=== PATIENT | female | born 1985 | race American Indian/Alaskan Native ===

== ENCOUNTER 2020-06-15 21:01 | Inpatient (IN) | payer OTHER ==
[2020-06-15 23:03] LABS: Basophils # (Auto) 0.1 K/mm3 (0.0-0.1); Basophils % (Auto) 0.5 % (0.0-1.8); Eosinophils % (Auto) 0.1 % (0.0-4.3); Hematocrit 51.9 % (30.3-42.9); Hemoglobin 16.9 gm/dl (10.1-14.3); Lymphocytes # (Auto) 2.1 K/mm3 (1.2-5.4); Lymphocytes % (Auto) 13.5 % (13.4-35.0); Mean Corpuscular HGB Conc 33 % (30-34); Mean Corpuscular Volume 102 fl (79-97); Monocytes # (Auto) 0.8 K/mm3 (0.0-0.8); Monocytes % (Auto) 5.2 % (0.0-7.3); Platelet Count 328 K/mm3 (140-440); Red Blood Count 5.09 M/mm3 (3.65-5.03); Red Cell Distribution Width 14.1 % (13.2-15.2)
[2020-06-15] MEDS ORDERED: SODIUM CHLORIDE 0.9% 1000 ML 1,000 ML IV ONE ×2 (23:13→23:14)
[2020-06-15 23:14] LABS: Alanine Aminotransferase 12 units/L (7-56); Blood Urea Nitrogen 5 mg/dL (7-17); Calcium 8.5 mg/dL (8.4-10.2); Hemolysis Index 178
--- NOTE | 2020-06-15 23:18 | Emergency Department Report ---
ED General Adult HPI - General Chief complaint: Hyperglycemia Stated complaint: WEAKNESS/MALAISE Time Seen by Provider: 06/15/20 23:13 Source: patient, EMS Mode of arrival: Ambulatory Limitations: No Limitations - History of Present Illness Initial comments: Patient is 34 years old female with history of type 1 diabetes. Patient presented to the ER complaining of generalized weakness and difficulty breathing for the last 2 to 3 days. Patient found with Kussmaul breathing with decreased responsiveness. Patient denied any fever or chills recently. No chest pain or cough. - Related Data Allergies Allergy/AdvReac Type Severity Reaction Status Date / Time No Known Allergies Allergy Verified 06/15/20 21:51 ED Review of Systems ROS: Stated complaint: WEAKNESS/MALAISE Other details as noted in HPI Comment: All other systems reviewed and negative Constitutional: denies: chills, fever Respiratory: shortness of breath, SOB with exertion. denies: cough, orthopnea Cardiovascular: palpitations. denies: chest pain Gastrointestinal: nausea. denies: abdominal pain, vomiting, diarrhea, constipation, hematemesis, melena, hematochezia Musculoskeletal: denies: back pain Neurological: weakness. denies: headache, numbness, paresthesias, confusion, abnormal gait ED Past Medical Hx - Past Medical History Previous Medical History?: Yes Hx Diabetes: Yes - Surgical History Past Surgical History?: Yes Hx Cholecystectomy: Yes Additional Surgical History: skin graft - Social History Smoking Status: Current Every Day Smoker Substance Use Type: None ED Physical Exam - General Limitations: No Limitations General appearance: obtunded - Head Head exam: Present: atraumatic, normocephalic, normal inspection - Eye Eye exam: Present: normal appearance, PERRL - ENT ENT exam: Present: mucous membranes dry - Neck Neck exam: Present: normal inspection, full ROM. Absent: tenderness, meningismus - Respiratory Respiratory exam: Present: normal lung sounds bilaterally - Cardiovascular Cardiovascular Exam: Present: tachycardia - GI/Abdominal GI/Abdominal exam: Present: soft, normal bowel sounds. Absent: distended, tenderness, guarding, rebound, rigid, organomegaly, mass, bruit, pulsatile mass, hernia - Extremities Exam Extremities exam: Present: normal inspection, full ROM, normal capillary refill. Absent: tenderness - Back Exam Back exam: Present: normal inspection, full ROM. Absent: tenderness, CVA tenderness (R), CVA tenderness (L) - Neurological Exam Neurological exam: Present: alert, oriented X3, CN II-XII intact, normal gait. Absent: motor sensory deficit - Psychiatric Psychiatric exam: Present: normal mood - Skin Skin exam: Present: warm, intact, normal color ED Course Vital Signs 06/15/20 06/15/20 21:46 23:15 Temperature 98.3 F 98 F Pulse Rate 129 H 124 H Respiratory 20 30 H Rate Blood Pressure 135/80 Blood Pressure 127/58 [Right] O2 Sat by Pulse 99 99 Oximetry ED Medical Decision Making - Lab Data Result diagrams: 06/15/20 22:22 06/15/20 22:22 - Radiology Data Radiology results: report reviewed - Medical Decision Making Patient is 34 years old female with history of type 1 diabetes. Patient presented to the ER complaining of generalized weakness and difficulty breathing for the last 2 to 3 days. Patient found with Kussmaul breathing with decreased responsiveness. Patient denied any fever or chills recently. No chest pain or cough. Patient found to be in a DKA with anion gap of 34 and a carbon dioxide of 6. Patient started on normal saline and insulin drip. Chest x-ray is unremarkable. I discussed the patient with Dr. Amos, he agreed to admit the patient to medical service for further management. Critical Care Time: Yes Critical care time in (mins) excluding proc time.: 30 Critical care attestation.: If time is entered above; I have spent that time in minutes in the direct care of this critically ill patient, excluding procedure time. ED Disposition Clinical Impression: DKA (diabetic ketoacidoses) Disposition: DC-[id number] OP ADMIT IP TO THIS HOSP Is pt being admited?: Yes Condition: Stable Instructions: Diabetic Ketoacidosis (ED)
[2020-06-15 23:19] LABS: BUN/Creatinine Ratio 7
--- NOTE | 2020-06-15 23:43 | XRay Report ---
CHEST 1 VIEW INDICATION: Shortness of breath. COMPARISON: None. FINDINGS: Support devices: None. Heart: Normal. Lungs/Pleura: No acute pulmonary or pleural findings. IMPRESSION: 1. No acute findings. Signer Name: Al Romo MD Signed: 06/15/2020 11:39 PM Workstation Name: [id number]
[2020-06-15] MEDS ORDERED: INSULIN REGULAR, HUMAN 100 UNITS in SODIUM CHLORIDE 0.9% 99 ML IV SCH (23:45)
[2020-06-16 00:18] LABS: Blood Urea Nitrogen 5 mg/dL (7-17); Calcium 8.4 mg/dL (8.4-10.2); Hemolysis Index 39
[2020-06-16 00:28] LABS: BUN/Creatinine Ratio 7
[2020-06-16] MEDS ORDERED: DEXTROSE 50% IN WATER (25GM) 50 ML SYRINGE IV PRN (00:33)
[2020-06-16] MEDS ORDERED: MORPHINE 2 MG/1 ML INJ IV PRN (00:33)
--- NOTE | 2020-06-16 00:43 | History and Physical Report ---
History of Present Illness Date of examination: 06/16/20 Date of admission: 06/16/2020 Chief complaint: Generalized Weakness Shortness of Breath Past History Past Medical History: diabetes Past Surgical History: cholecystectomy, Other (Skin Graft) Social history: smoking (Current daily smoker) Family history: no significant family history Medications and Allergies Allergies Allergy/AdvReac Type Severity Reaction Status Date / Time No Known Allergies Allergy Verified 06/15/20 21:51 Active Meds: Active Medications Dextrose (Dextrose 50% In Water (25gm) 50 Ml Syringe) 0 ml IV Q30MIN PRN; Protocol PRN Reason: Hypoglycemia Insulin Human Regular 100 (units/ Sodium Chloride) 100 mls @ 1 mls/hr IV TITR EMMA; Protocol Last Admin: 06/16/20 00:00 Dose: 7 units/hr, 7 mls/hr Documented by: Sodium Chloride (Nacl 0.9% 1000 Ml) 1,000 mls @ 150 mls/hr IV DIRECT EMMA Potassium Chloride/Dextrose/Sod Cl (D5w/0.45% Nacl/Kcl 20 Meq) 20 meq in 1,000 mls @ 125 mls/hr IV DIRECT EMMA Morphine Sulfate (Morphine 2 Mg/1 Ml Inj) 2 mg IV Q4H PRN PRN Reason: Pain, Moderate (4-6) Ondansetron HCl (Ondansetron 4 Mg/2 Ml Inj) 4 mg IV Q8H PRN PRN Reason: Nausea And Vomiting Sodium Chloride (Sodium Chloride 0.9% 10 Ml Flush Syringe) 10 ml IV BID EMMA Sodium Chloride (Sodium Chloride 0.9% 10 Ml Flush Syringe) 10 ml IV PRN PRN PRN Reason: LINE FLUSH Review of Systems Constitutional: weakness, no fever, no chills Ears, nose, mouth and throat: no nasal congestion, no sore throat Cardiovascular: no chest pain, no palpitations Respiratory: no cough, no shortness of breath Gastrointestinal: no abdominal pain, no nausea, no vomiting, no diarrhea Genitourinary Female: no flank pain, no dysuria, no hematuria Musculoskeletal: no neck pain, no low back pain Integumentary: no rash, no pruritis Neurological: no headaches, no confusion Psychiatric: no anxiety, no depression Endocrine: no polyphagia, no polydipsia, no polyuria, no nocturia, no weight change Exam - Constitutional Vitals: Temp Pulse Resp BP Pulse Ox 98 F 124 H 30 H 127/58 99 06/15/20 23:15 06/15/20 23:15 06/15/20 23:15 06/15/20 23:15 06/15/20 23:15 General appearance: Present: no acute distress, well-nourished - EENT Eyes: Present: PERRL, EOM intact. Absent: scleral icterus ENT: hearing intact, clear oral mucosa, dentition normal - Neck Neck: Present: supple, normal ROM - Respiratory Respiratory effort: normal, other (Mildly tachypneic) Respiratory: bilateral: CTA - Cardiovascular Heart rate: 120 Rhythm: other (Tachycardic) Heart Sounds: Present: S1 & S2. Absent: gallop, systolic murmur, diastolic murmur, rub, click - Extremities Extremities: no ischemia, pulses intact, pulses symmetrical, No edema, normal temperature, normal color, Full ROM Peripheral Pulses: within normal limits - Abdominal General gastrointestinal: Present: soft, non-tender, non-distended, normal bowel sounds. Absent: mass - Integumentary Integumentary: Present: clear, warm, dry. Absent: rash - Musculoskeletal Musculoskeletal: strength equal bilaterally - Psychiatric Psychiatric: appropriate mood/affect, intact judgment & insight, memory intact, cooperative - Neurologic Neurologic: CNII-XII intact, no focal deficits, moves all extremities Results - Labs CBC & Chem 7: 06/15/20 22:22 06/15/20 23:41 Labs: Abnormal lab results 06/15/20 06/15/20 06/15/20 Range/Units 21:57 22:22 22:22 WBC 15.3 H (4.5-11.0) K/mm3 RBC 5.09 H (3.65-5.03) M/mm3 Hgb 16.9 H (10.1-14.3) gm/dl Hct 51.9 H (30.3-42.9) % MCV 102 H (79-97) fl MCH 33 H (28-32) pg Seg Neutrophils % 80.7 H (40.0-70.0) % Seg Neutrophils # 12.3 H (1.8-7.7) K/mm3 VBG pH (7.320-7.420) Sodium 134 L (137-145) mmol/L Potassium 5.1 H (3.6-5.0) mmol/L Carbon Dioxide 6 L* (22-30) mmol/L BUN 5 L (7-17) mg/dL Glucose 414 H (65-100) mg/dL POC Glucose 362 H (70-105) mg/dL Magnesium 2.40 H (1.7-2.3) mg/dL Total Protein 8.3 H (6.3-8.2) g/dL 06/15/20 06/15/20 06/15/20 Range/Units 22:22 23:41 23:41 WBC (4.5-11.0) K/mm3 RBC (3.65-5.03) M/mm3 Hgb (10.1-14.3) gm/dl Hct (30.3-42.9) % MCV (79-97) fl MCH (28-32) pg Seg Neutrophils % (40.0-70.0) % Seg Neutrophils # (1.8-7.7) K/mm3 VBG pH 7.011 L* (7.320-7.420) Sodium (137-145) mmol/L Potassium (3.6-5.0) mmol/L Carbon Dioxide 4 L* (22-30) mmol/L BUN 5 L (7-17) mg/dL Glucose 432 H (65-100) mg/dL POC Glucose (70-105) mg/dL Magnesium 2.40 H (1.7-2.3) mg/dL Total Protein (6.3-8.2) g/dL 06/15/20 Range/Units 23:54 WBC (4.5-11.0) K/mm3 RBC (3.65-5.03) M/mm3 Hgb (10.1-14.3) gm/dl Hct (30.3-42.9) % MCV (79-97) fl MCH (28-32) pg Seg Neutrophils % (40.0-70.0) % Seg Neutrophils # (1.8-7.7) K/mm3 VBG pH (7.320-7.420) Sodium (137-145) mmol/L Potassium (3.6-5.0) mmol/L Carbon Dioxide (22-30) mmol/L BUN (7-17) mg/dL Glucose (65-100) mg/dL POC Glucose 398 H (70-105) mg/dL Magnesium (1.7-2.3) mg/dL Total Protein (6.3-8.2) g/dL Assessment and Plan - Patient Problems (1) DKA (diabetic ketoacidoses) Current Visit: Yes Status: Acute (2) DVT prophylaxis Current Visit: Yes Status: Acute (3) Full code status Current Visit: Yes Status: Acute
[2020-06-16] MEDS ORDERED: D5W/0.45% NACL/KCL 20 MEQ 20 MEQ/1,000 ML BAG IV SCH (01:00)
--- NOTE | 2020-06-16 01:38 | History and Physical Report ---
History of Present Illness Date of examination: 06/15/20 Date of admission: 06/16/20 00:10 Chief complaint: Generalized Weakness Nausea and Vomiting History of present illness: 34-year-old -[place] female with known history of type 1 diabetes mellitus presenting in the emergency room today complaining of generalized weakness difficulty breathing which has been ongoing for the past 2 to 3 days. Patient denies any fever or chills, no chest pain, no headache or dizziness and no diaphoresis. Patient indicates that she has been having nausea and vomiting and some abdominal discomfort. She denies any hematuria or dysuria. Upon arrival in the emergency room patient was tachycardic and tachypneic. Work-up reveals elevated blood glucose of 414, anion gap of 34 . Patient was commenced on IV fluid and insulin drip according to DKA protocol. Past History Past Medical History: diabetes Past Surgical History: cholecystectomy, Other (Skin Graft) Social history: smoking (Current daily smoker) Family history: no significant family history Medications and Allergies Allergies Allergy/AdvReac Type Severity Reaction Status Date / Time No Known Allergies Allergy Verified 06/15/20 21:51 Active Meds: Active Medications Dextrose (Dextrose 50% In Water (25gm) 50 Ml Syringe) 0 ml IV Q30MIN PRN; Protocol PRN Reason: Hypoglycemia Enoxaparin Sodium (Enoxaparin 40 Mg/0.4 Ml Inj) 40 mg SUB-Q QDAY@2200 EMMA; Protocol Insulin Human Regular 100 (units/ Sodium Chloride) 100 mls @ 1 mls/hr IV TITR EMMA; Protocol Last Titration: 06/16/20 01:02 Dose: 6 units/hr, 6 mls/hr Documented by: Sodium Chloride (Nacl 0.9% 1000 Ml) 1,000 mls @ 150 mls/hr IV DIRECT EMMA Potassium Chloride/Dextrose/Sod Cl (D5w/0.45% Nacl/Kcl 20 Meq) 20 meq in 1,000 mls @ 125 mls/hr IV DIRECT EMMA Morphine Sulfate (Morphine 2 Mg/1 Ml Inj) 2 mg IV Q4H PRN PRN Reason: Pain, Moderate (4-6) Ondansetron HCl (Ondansetron 4 Mg/2 Ml Inj) 4 mg IV Q8H PRN PRN Reason: Nausea And Vomiting Sodium Chloride (Sodium Chloride 0.9% 10 Ml Flush Syringe) 10 ml IV BID EMMA Sodium Chloride (Sodium Chloride 0.9% 10 Ml Flush Syringe) 10 ml IV PRN PRN PRN Reason: LINE FLUSH Review of Systems Constitutional: weakness Ears, nose, mouth and throat: no nasal congestion, no sore throat Cardiovascular: palpitations, no chest pain Respiratory: no cough, no shortness of breath Gastrointestinal: abdominal pain, nausea, vomiting, no BRBPR, no melena Genitourinary Female: no flank pain, no dysuria, no hematuria Musculoskeletal: no neck pain, no low back pain Integumentary: no rash, no pruritis Neurological: no headaches, no confusion Psychiatric: no anxiety, no depression Endocrine: no polyphagia, no polydipsia, no polyuria, no nocturia Exam - Constitutional Vitals: Temp Pulse Resp BP Pulse Ox 98 F 122 H 32 H 135/74 100 06/15/20 23:15 06/16/20 00:00 06/16/20 00:00 06/16/20 00:00 06/16/20 00:00 General appearance: Present: no acute distress, well-nourished - EENT Eyes: Present: PERRL, EOM intact. Absent: scleral icterus ENT: hearing intact, clear oral mucosa, dentition normal - Neck Neck: Present: supple, normal ROM - Respiratory Respiratory effort: normal Respiratory: bilateral: CTA - Cardiovascular Heart rate: 120 (Tachycardic) Rhythm: regular Heart Sounds: Present: S1 & S2. Absent: gallop, systolic murmur, diastolic m urmur, rub, click - Extremities Extremities: no ischemia, pulses intact, pulses symmetrical, No edema, normal temperature, normal color, Full ROM Peripheral Pulses: within normal limits - Abdominal General gastrointestinal: Present: soft, non-tender, non-distended, normal bowel sounds. Absent: mass - Integumentary Integumentary: Present: clear, warm, dry. Absent: rash - Musculoskeletal Musculoskeletal: strength equal bilaterally - Psychiatric Psychiatric: appropriate mood/affect, intact judgment & insight, memory intact, cooperative - Neurologic Neurologic: CNII-XII intact, no focal deficits, moves all extremities Results - Labs CBC & Chem 7: 06/15/20 22:22 06/16/20 01:09 Labs: Abnormal lab results 06/15/20 06/15/20 06/15/20 Range/Units 21:57 22:22 22:22 WBC 15.3 H (4.5-11.0) K/mm3 RBC 5.09 H (3.65-5.03) M/mm3 Hgb 16.9 H (10.1-14.3) gm/dl Hct 51.9 H (30.3-42.9) % MCV 102 H (79-97) fl MCH 33 H (28-32) pg Seg Neutrophils % 80.7 H (40.0-70.0) % Seg Neutrophils # 12.3 H (1.8-7.7) K/mm3 VBG pH (7.320-7.420) Sodium 134 L (137-145) mmol/L Potassium 5.1 H (3.6-5.0) mmol/L Carbon Dioxide 6 L* (22-30) mmol/L BUN 5 L (7-17) mg/dL Glucose 414 H (65-100) mg/dL POC Glucose 362 H (70-105) mg/dL Magnesium 2.40 H (1.7-2.3) mg/dL Total Protein 8.3 H (6.3-8.2) g/dL 06/15/20 06/15/20 06/15/20 Range/Units 22:22 23:41 23:41 WBC (4.5-11.0) K/mm3 RBC (3.65-5.03) M/mm3 Hgb (10.1-14.3) gm/dl Hct (30.3-42.9) % MCV (79-97) fl MCH (28-32) pg Seg Neutrophils % (40.0-70.0) % Seg Neutrophils # (1.8-7.7) K/mm3 VBG pH 7.011 L* (7.320-7.420) Sodium (137-145) mmol/L Potassium (3.6-5.0) mmol/L Carbon Dioxide 4 L* (22-30) mmol/L BUN 5 L (7-17) mg/dL Glucose 432 H (65-100) mg/dL POC Glucose (70-105) mg/dL Magnesium 2.40 H (1.7-2.3) mg/dL Total Protein (6.3-8.2) g/dL 06/15/20 06/16/20 Range/Units 23:54 01:02 WBC (4.5-11.0) K/mm3 RBC (3.65-5.03) M/mm3 Hgb (10.1-14.3) gm/dl Hct (30.3-42.9) % MCV (79-97) fl MCH (28-32) pg Seg Neutrophils % (40.0-70.0) % Seg Neutrophils # (1.8-7.7) K/mm3 VBG pH (7.320-7.420) Sodium (137-145) mmol/L Potassium (3.6-5.0) mmol/L Carbon Dioxide (22-30) mmol/L BUN (7-17) mg/dL Glucose (65-100) mg/dL POC Glucose 398 H 342 H (70-105) mg/dL Magnesium (1.7-2.3) mg/dL Total Protein (6.3-8.2) g/dL Assessment and Plan - Patient Problems (1) DKA (diabetic ketoacidoses) Current Visit: Yes Status: Acute Plan to address problem: Patient commenced on IV fluid and insulin drip We will monitor Accu-Cheks closely. We will also check hemoglobin A1c. (2) DVT prophylaxis Current Visit: Yes Status: Acute Plan to address problem: Patient placed on subcutaneous Lovenox. (3) Full code status Current Visit: Yes Status: Acute Plan to address problem: Patient is a full code.
[2020-06-16 02:31] LABS: Blood Urea Nitrogen 6 mg/dL (7-17); Calcium 7.9 mg/dL (8.4-10.2); Hemolysis Index 33
[2020-06-16 02:32] LABS: BUN/Creatinine Ratio 9
[2020-06-16 03:22] LABS: Bacteria,Urine 1+ /HPF (Negative); Bilirubin,Urine NEG (Negative); Blood,Urine SM (Negative); Color,Urine Straw (Yellow); Mucus,Urine FEW /HPF; Urobilinogen,Urine < 2.0 mg/dL (<2.0)
[2020-06-16] MEDS: SODIUM CHLORIDE 0.9% 1000 ML 1,000 ML IV SCH ×3 (04:04→22:31)
[2020-06-16] MEDS ORDERED: SODIUM CHLORIDE 0.9% 500 ML 500 ML IV ONE (04:19)
[2020-06-16 06:10] LABS: Blood Urea Nitrogen 4 mg/dL (7-17); Calcium 7.7 mg/dL (8.4-10.2); Hemolysis Index 12
[2020-06-16 06:11] LABS: BUN/Creatinine Ratio 7
[2020-06-16] MEDS ORDERED: POTASSIUM CHLORIDE 20 MEQ 20 MEQ/100 ML BAG IV ONE (08:13)
[2020-06-16] MEDS ORDERED: LACTATED RINGERS 1,000 ML IV ONE (08:45)
[2020-06-16] MEDS: POTASSIUM CHLORIDE 10 MEQ 10 MEQ/100 ML BAG IV SCH ×2 (08:47→10:27)
[2020-06-16] MEDS: ONDANSETRON 4 MG/2 ML INJ IV PRN (08:47)
--- NOTE | 2020-06-16 09:05 | Event Note ---
Date: 06/16/20 This is the second visit after midnight This is a 34-year-old -[place] female with known history of type 1 diabetes mellitus presenting in the emergency room complaining of generalized weakness difficulty breathing which has been ongoing for the past 2 to 3 days. Upon arrival in the emergency room patient was tachycardic and tachypneic. Work-up reveals elevated blood glucose of 414, anion gap of 34 . Patient was commenced on IV fluid and insulin drip according to DKA protocol. Blood glucose today improved, anion gap closed. Discontinue insulin drip, initiate on subcu insulin, start on consistent carb diet, replete potassium Monitor BMP, transfer out from ICU to telemetry today
[2020-06-16] MEDS: ACETAMINOPHEN 325 MG TAB PO PRN (09:56)
[2020-06-16] MEDS: INSULIN NPH, HUMAN 100 UNIT/1 ML SUB-Q SCH ×2 (11:00→17:54)
[2020-06-16] MEDS: INSULIN REGULAR, HUMAN 100 UNITS/1 ML SUB-Q SCH ×3 (11:01→22:30)
[2020-06-16] MEDS: POTASSIUM CHLORIDE ER 10 MEQ TAB PO SCH (11:02)
[2020-06-16 14:55] LABS: Hematocrit 35.5 % (30.3-42.9); Hemoglobin 12.3 gm/dl (10.1-14.3); Mean Corpuscular HGB Conc 35 % (30-34); Mean Corpuscular Volume 97 fl (79-97); Platelet Count 201 K/mm3 (140-440); Red Blood Count 3.65 M/mm3 (3.65-5.03); Red Cell Distribution Width 13.6 % (13.2-15.2)
[2020-06-16 15:17] LABS: Blood Urea Nitrogen 5 mg/dL (7-17); Calcium 7.7 mg/dL (8.4-10.2); Hemolysis Index 5
[2020-06-16 15:47] LABS: BUN/Creatinine Ratio 8
[2020-06-16] MEDS ORDERED: POTASSIUM CHLORIDE ER 10 MEQ TAB PO SCH (16:30)
--- NOTE | 2020-06-16 16:52 | Consultation ---
History of Present Illness Consult date: 06/16/20 Requesting physician: JEANNA ALEXANDER Reason for consult: other (DKA) History of present illness: PULMONARY/CCM CONSULT NOTE (Full dictation # [id number]) Please see dictated notes for full details Past History Past Medical History: diabetes Past Surgical History: cholecystectomy, Other (Skin Graft) Social history: smoking (Current daily smoker) Family history: no significant family history Medications and Allergies Allergies Allergy/AdvReac Type Severity Reaction Status Date / Time No Known Allergies Allergy Verified 06/15/20 21:51 Active Meds: Active Medications Acetaminophen (Acetaminophen 325 Mg Tab) 650 mg PO Q4H PRN PRN Reason: Pain MILD(1-3)/Fever >100.5/CONNORS Last Admin: 06/16/20 09:56 Dose: 650 mg Documented by: Dextrose (Dextrose 50% In Water (25gm) 50 Ml Syringe) 0 ml IV Q30MIN PRN; Protocol PRN Reason: Hypoglycemia Enoxaparin Sodium (Enoxaparin 40 Mg/0.4 Ml Inj) 40 mg SUB-Q QDAY@2200 EMMA; Protocol Famotidine (Famotidine 20 Mg Tab) 20 mg PO QHS EMMA Sodium Chloride (Nacl 0.9% 1000 Ml) 1,000 mls @ 150 mls/hr IV DIRECT EMMA Last Infusion: 06/16/20 14:00 Dose: 0 mls/hr Documented by: Insulin Human NPH (Insulin Nph, Human 100 Unit/1 Ml) 10 unit SUB-Q BIDDIAB EMMA Last Admin: 06/16/20 11:00 Dose: 10 unit Documented by: Insulin Human Regular (Insulin Regular, Human 100 Units/1 Ml) 0 units SUB-Q ACHS EMMA; Protocol Last Admin: 06/16/20 11:01 Dose: 2 units Documented by: Morphine Sulfate (Morphine 2 Mg/1 Ml Inj) 2 mg IV Q4H PRN PRN Reason: Pain, Moderate (4-6) Last Admin: 06/16/20 02:35 Dose: 2 mg Documented by: Ondansetron HCl (Ondansetron 4 Mg/2 Ml Inj) 4 mg IV Q8H PRN PRN Reason: Nausea And Vomiting Last Admin: 06/16/20 08:47 Dose: 4 mg Documented by: Potassium Chloride (Potassium Chloride Er 10 Meq Tab) 30 meq PO QDAY EMMA Last Admin: 06/16/20 11:02 Dose: 30 meq Documented by: Potassium Chloride (Potassium Chloride Er 10 Meq Tab) 30 meq PO ONCE EMMA Stop: 06/16/20 19:00 Sodium Chloride (Sodium Chloride 0.9% 10 Ml Flush Syringe) 10 ml IV BID EMMA Last Admin: 06/16/20 09:40 Dose: Not Given Documented by: Sodium Chloride (Sodium Chloride 0.9% 10 Ml Flush Syringe) 10 ml IV PRN PRN PRN Reason: LINE FLUSH Physical Examination Vital signs: Vital Signs Temp Pulse Resp BP Pulse Ox 98.3 F 129 H 20 135/80 99 06/15/20 21:46 06/15/20 21:46 06/15/20 21:46 06/15/20 21:46 06/15/20 21:46 Results - Laboratory Findings CBC and BMP: 06/16/20 14:27 06/16/20 14:27 Abnormal lab findings: Abnormal Labs 06/15/20 06/15/20 06/15/20 21:57 22:22 22:22 WBC 15.3 H RBC 5.09 H Hgb 16.9 H Hct 51.9 H MCV 102 H MCH 33 H MCHC Seg Neutrophils % 80.7 H Seg Neutrophils # 12.3 H VBG pH Sodium 134 L Potassium 5.1 H Chloride Carbon Dioxide 6 L* BUN 5 L Glucose 414 H POC Glucose 362 H Hemoglobin A1c Calcium Phosphorus Magnesium 2.40 H Total Protein 8.3 H 06/15/20 06/15/20 06/15/20 22:22 23:41 23:41 WBC RBC Hgb Hct MCV MCH MCHC Seg Neutrophils % Seg Neutrophils # VBG pH 7.011 L* Sodium Potassium Chloride Carbon Dioxide 4 L* BUN 5 L Glucose 432 H POC Glucose Hemoglobin A1c Calcium Phosphorus Magnesium 2.40 H Total Protein 06/15/20 06/16/20 06/16/20 23:54 01:02 01:09 WBC RBC Hgb Hct MCV MCH MCHC Seg Neutrophils % Seg Neutrophils # VBG pH Sodium Potassium Chloride Carbon Dioxide 3 L* BUN 6 L Glucose 346 H POC Glucose 398 H 342 H Hemoglobin A1c Calcium 7.9 L Phosphorus Magnesium Total Protein 06/16/20 06/16/20 06/16/20 01:09 01:09 02:23 WBC RBC Hgb Hct MCV MCH MCHC Seg Neutrophils % Seg Neutrophils # VBG pH Sodium Potassium Chloride Carbon Dioxide BUN Glucose POC Glucose 295 H Hemoglobin A1c 11.6 H Calcium Phosphorus 2.30 L Magnesium Total Protein 06/16/20 06/16/20 06/16/20 03:14 05:25 05:37 WBC RBC Hgb Hct MCV MCH MCHC Seg Neutrophils % Seg Neutrophils # VBG pH Sodium Potassium 3.2 L Chloride 109.8 H Carbon Dioxide 10 L D BUN 4 L Glucose 185 H POC Glucose 218 H 213 H Hemoglobin A1c Calcium 7.7 L Phosphorus Magnesium Total Protein 06/16/20 06/16/20 06/16/20 06:32 08:20 09:44 WBC RBC Hgb Hct MCV MCH MCHC Seg Neutrophils % Seg Neutrophils # VBG pH Sodium Potassium Chloride Carbon Dioxide BUN Glucose POC Glucose 207 H 173 H 169 H Hemoglobin A1c Calcium Phosphorus Magnesium Total Protein 06/16/20 06/16/20 06/16/20 10:28 11:26 14:27 WBC RBC Hgb Hct MCV MCH MCHC Seg Neutrophils % Seg Neutrophils # VBG pH Sodium Potassium 3.3 L Chloride 108.0 H Carbon Dioxide 14 L BUN 5 L Glucose 171 H POC Glucose 157 H 145 H Hemoglobin A1c Calcium 7.7 L Phosphorus Magnesium Total Protein 06/16/20 06/16/20 14:27 14:49 WBC RBC Hgb Hct MCV MCH 34 H MCHC 35 H Seg Neutrophils % Seg Neutrophils # VBG pH Sodium Potassium Chloride Carbon Dioxide BUN Glucose POC Glucose 152 H Hemoglobin A1c Calcium Phosphorus Magnesium Total Protein
[2020-06-16] MEDS ORDERED: FAMOTIDINE 20 MG TAB PO SCH (22:00)
[2020-06-16] MEDS: ENOXAPARIN 40 MG/0.4 ML INJ SUB-Q SCH (22:29)
--- NOTE | 2020-06-16 22:34 | Consultation ---
PULMONARY CRITICAL CARE CONSULT NOTE CONSULTING PHYSICIAN: Sheldon Amos MD REASON FOR CONSULTATION: Diabetic ketoacidosis. CHIEF COMPLAINT AND HISTORY OF PRESENT ILLNESS: The patient is a 34-year-old -[place] female with past medical history significant for type 1 diabetes, on insulin, came into the Emergency Room complaining of generalized malaise that had been going on for about 2-3 days. She also had some nausea and vomiting. She denied fevers or chills. Denied chest pains. Denied dizziness, loss of consciousness. Denied diaphoresis, denied any wounds or sores on her body. She denied hematuria or dysuria. She was evaluated in the Emergency Room and ultimately found to have a high anion gap of 34. Ultimately was diagnosed with diabetic ketoacidosis, placed on IV insulin and brought into the intensive care unit. When I stopped by to see her, she was doing better. She had been weaned off the IV insulin. She had had a meal and there was no nausea or vomiting. She denied any abdominal pain. She was still very weak, but that was about it. When asked about tobacco use or abuse, she did admit to being a daily smoker, gives a less than 5-pack-year tobacco smoking history and agreed to consider strongly quitting. So, this is really as much of the history of presentation as I have. PAST MEDICAL HISTORY: Diabetes. PAST SURGICAL HISTORY: She has had a cholecystectomy and she has had a skin graft. MEDICATIONS: She was on at the time I stopped by to see were reviewed, pertinent medications include the following: Tylenol 650 mg p.o. q. 4 hours p.r.n. mild pain or fevers, Lovenox 40 mg subcutaneous daily, Pepcid 20 mg p.o. at bedtime, NPH insulin 10 units subcutaneous b.i.d. as well as insulin via sliding scale, morphine sulfate 2 mg IV q. 4 hours p.r.n. moderate pain, Zofran 4 mg IV q. 8 hours p.r.n. nausea and vomiting, potassium chloride 30 mEq p.o. x1. ALLERGIES: No known drug allergies. DIET: Thin lady. Denies acute weight loss or gain in the preceding few weeks to months. FAMILY AND SOCIAL HISTORY: Lives in the community, has a 5+ pack year tobacco smoking history. Denies alcohol or illicit drug use or abuse. FAMILY HISTORY: Otherwise, noncontributory. REVIEW OF SYSTEMS: No loss of consciousness. No new onset seizures. No new onset focal weakness. No gross hematochezia or melena. No gross hematuria or dysuria. No hematemesis. No hemoptysis, no palpitations. Denies heat or cold intolerance. Complete 13-system review of systems obtained. Pertinent positives and/or negatives as in body of history above, otherwise noncontributory. PHYSICAL EXAMINATION: VITAL SIGNS: At presentation in the Emergency Room and since she was afebrile 98.3 degrees Fahrenheit with a pulse of 129, respiratory rate as high as 30 and blood pressure 135/80, O2 sats were 99%, inspired oxygen concentration at that time was not recorded. When I stopped by to see her, O2 sats were 99% on room air. GENERAL: She is a thin female, normocephalic, atraumatic, talking to me in full sentences without significantly increased respiratory effort at rest. HEAD, EYES, EARS, NOSE AND THROAT: Anicteric. No conjunctival erythema. Oropharynx was still a little dry. No gross jugular venous distention, no thyromegaly. NECK: Grossly, there were no palpable lymph nodes in the supraclavicular or submandibular lymph node chains. LUNGS: Auscultation of both lung grant unremarkable. Lungs were clear bilaterally with good bilateral air movement. HEART: Heart sounds 1 and 2 are heard. They were regular in rate and rhythm at the time of my evaluation without overt rubs or murmurs. ABDOMEN: Soft, full, bowel sounds are positive, nontender, no palpable hepatosplenomegaly. EXTREMITIES: Without overt digital clubbing, no cyanosis, no pedal edema. Pedal pulses are 2+ bilaterally. NEUROLOGIC: Pupils are equal, round, about 4 mm, reactive to light. Extraocular muscle movements are intact. She moves all 4 extremities spontaneously. SKIN: Normal turgor without overt cellulitis or rash in the areas examined. Please see the wound care nurse's notes for full description of her skin. PSYCHIATRIC: Mood was normal. Affect was appropriate. She had intact judgment and insight. LABORATORY DATA: From my review are as follows: Admission white cell count 15,300, hemoglobin 16.9, hematocrit 51.9, platelet count was 328. No manual differential. Venous blood gas showed a pH of 7.01. Serum sodium was 137, potassium 3.9, chloride 101, bicarbonate 4, BUN 5, creatinine 0.6, glucose was 432. Magnesium 2.4. Liver function test within normal limits. Urine test was negative. Urinalysis was negative for nitrites and leukocyte esterase. Coronavirus PCR was negative. White cell count is down to 9900. The anion gap is down to 18 from 36. No blood cultures. Chest x-ray has been reviewed and no acute process. ASSESSMENT: 1. Diabetic ketoacidosis. 2. Leukocytosis at presentation. 3. Severe metabolic acidosis. 4. Tobacco use disorder. PLAN: She has been successfully transitioned off IV insulin therapy. I have strongly counseled her at bedside about the importance of tobacco cessation explaining that in particular with her comorbidities, she is actually exposing on much to gasoline and at risk for worsening complications rapidly. She promises to quit tobacco abuse. I have explained to her that she can follow up with her primary care and that we have other adjuncts to aid tobacco abstinence. She wants to think about it. Otherwise, she is doing better. Electrolytes will be monitored and corrected as necessary. Glycemic control will be for target blood glucose of less than 180 mg/dL. She is currently on GI prophylaxis and DVT prophylaxis. Flu and pneumonia vaccination will be addressed per protocol. Thank you very much for the consult. We will follow along and make further recommendations as picture progresses/becomes clearer. She can be transferred to the regular floor at this point. JOB# [id number] KEISHA/DARREN SHORE
[2020-06-17 00:28] LABS: Blood Urea Nitrogen 6 mg/dL (7-17); Calcium 7.5 mg/dL (8.4-10.2); Hemolysis Index 8
[2020-06-17 00:30] LABS: BUN/Creatinine Ratio 15
[2020-06-17] MEDS: SODIUM CHLORIDE 0.9% 1000 ML 1,000 ML IV SCH ×3 (06:19→23:54)
[2020-06-17 07:33] LABS: Basophils % (Auto) 0.9 % (0.0-1.8); Eosinophils % (Auto) 0.6 % (0.0-4.3); Hematocrit 34.4 % (30.3-42.9); Hemoglobin 11.9 gm/dl (10.1-14.3); Lymphocytes # (Auto) 2.2 K/mm3 (1.2-5.4); Lymphocytes % (Auto) 41.7 % (13.4-35.0); Mean Corpuscular HGB Conc 35 % (30-34); Mean Corpuscular Volume 97 fl (79-97); Monocytes # (Auto) 0.4 K/mm3 (0.0-0.8); Monocytes % (Auto) 8.1 % (0.0-7.3); Platelet Count 182 K/mm3 (140-440); Red Blood Count 3.54 M/mm3 (3.65-5.03); Red Cell Distribution Width 13.3 % (13.2-15.2)
[2020-06-17 07:58] LABS: Blood Urea Nitrogen 6 mg/dL (7-17); Calcium 7.7 mg/dL (8.4-10.2); Hemolysis Index 7
[2020-06-17 08:01] LABS: BUN/Creatinine Ratio 20
[2020-06-17] MEDS ORDERED: POTASSIUM CHLORIDE ER 20 MEQ TAB PO SCH (08:30)
[2020-06-17] MEDS: INSULIN NPH, HUMAN 100 UNIT/1 ML SUB-Q SCH ×2 (09:10→16:32)
[2020-06-17] MEDS: INSULIN REGULAR, HUMAN 100 UNITS/1 ML SUB-Q SCH ×4 (09:10→21:44)
[2020-06-17] MEDS: ONDANSETRON 4 MG/2 ML INJ IV PRN (09:10)
[2020-06-17] MEDS: HYDROcodone/ACETAMINOPHEN 5-325 MG TAB PO PRN ×2 (09:54→16:32)
[2020-06-17] MEDS: POTASSIUM CHLORIDE ER 10 MEQ TAB PO SCH (09:54)
[2020-06-17] MEDS ORDERED: MORPHINE 2 MG/1 ML INJ IV PRN (10:00)
--- NOTE | 2020-06-17 10:44 | Cat Scan Report ---
CT ABDOMEN AND PELVIS WITHOUT CONTRAST INDICATION / CLINICAL INFORMATION: Unspecified abdominal pain. TECHNIQUE: Axial CT images were obtained through the abdomen and pelvis without IV contrast. All CT scans at [facility] location are performed using CT dose reduction for ALARA by means of automated exposure control. COMPARISON: None available. FINDINGS: LOWER CHEST: No significant abnormality. LIVER: No significant abnormality. GALLBLADDER: Surgically absent. BILE DUCTS: No significant abnormality. PANCREAS: No significant abnormality. SPLEEN: No significant abnormality. ADRENALS: No significant abnormality. RIGHT KIDNEY / URETER: No significant abnormality. LEFT KIDNEY / URETER: No significant abnormality. STOMACH / SMALL BOWEL: No significant abnormality. COLON: No significant abnormality. APPENDIX: No significant abnormality. PERITONEUM: No free fluid. No free air. No fluid collection. LYMPH NODES: No significant adenopathy. AORTA / ARTERIES: No significant abnormality. IVC / VEINS: No significant abnormality. URINARY BLADDER: No significant abnormality. REPRODUCTIVE ORGANS: No significant abnormality. ADDITIONAL FINDINGS: None. SKELETAL SYSTEM: No significant abnormality. IMPRESSION: 1. No significant abnormality. Signer Name: Wily Solorio MD Signed: 06/17/2020 10:39 AM Workstation Name: [id number]
--- NOTE | 2020-06-17 15:56 | Progress Note ---
Assessment and Plan Diabetic ketoacidosis. Leukocytosis at presentation. Severe metabolic acidosis. Tobacco use disorder. - continue accuchecks with glycemic control per SSI for target BG < 180 mg/dl - prn supplemental oxygen as needed to keep O2 sat's > 90% - prn bronchodilators with pulmonary hygiene per RT - PT/OT as tolerated - mobility protocols for pressure ulcer prophylaxis - GI & VTE prophylaxis - Flu & pneumovax addressed per protocol - continue other care per attending / other consultants ... re-evaluate in am & prn Subjective Date of service: 06/17/20 Interval history: Patient is seen today for: DKA; Leukocytosis; Severe metabolic acidosis; Tobacco use disorder. Seen and examined at bedside; 24hour events reviewed; nursing and respiratory care staff consulted; no adverse overnight events reported to me; resting peacefully in bed; denies N/V/F/C; feels stronger Objective Vital Signs - 12hr 06/17/20 06/17/20 06/17/20 05:33 07:42 10:00 Temperature 97.4 F L 98.3 F Pulse Rate 76 80 74 Respiratory 20 18 Rate Blood Pressure 96/66 87/56 O2 Sat by Pulse 100 98 Oximetry Constitutional: no acute distress Eyes: non-icteric ENT: oropharynx moist Neck: supple Effort: normal Ascultation: Bilateral: clear Percussion: Bilateral: not dull Cardiovascular: regular rate and rhythm Gastrointestinal: normoactive bowel sounds, soft, non-tender, non-distended Integumentary: normal Extremities: no cyanosis, no edema, pulses normal, no ischemia or petechiae Neurologic: normal mental status, non-focal exam, pupils equal and round, motor strength normal and Psychiatric: mood appropriate, affect normal CBC and BMP: 06/17/20 06:40 06/18/20 12:53 Abnormal lab findings: Abnormal Labs 06/15/20 06/15/20 06/15/20 21:57 22:22 22:22 WBC 15.3 H RBC 5.09 H Hgb 16.9 H Hct 51.9 H MCV 102 H MCH 33 H MCHC Lymph % (Auto) Kings % (Auto) Seg Neutrophils % 80.7 H Seg Neutrophils # 12.3 H VBG pH Sodium 134 L Potassium 5.1 H Chloride Carbon Dioxide 6 L* BUN 5 L Creatinine Glucose 414 H POC Glucose 362 H Hemoglobin A1c Calcium Phosphorus Magnesium 2.40 H Total Protein 8.3 H 06/15/20 06/15/20 06/15/20 22:22 23:41 23:41 WBC RBC Hgb Hct MCV MCH MCHC Lymph % (Auto) Kings % (Auto) Seg Neutrophils % Seg Neutrophils # VBG pH 7.011 L* Sodium Potassium Chloride Carbon Dioxide 4 L* BUN 5 L Creatinine Glucose 432 H POC Glucose Hemoglobin A1c Calcium Phosphorus Magnesium 2.40 H Total Protein 06/15/20 06/16/20 06/16/20 23:54 01:02 01:09 WBC RBC Hgb Hct MCV MCH MCHC Lymph % (Auto) Kings % (Auto) Seg Neutrophils % Seg Neutrophils # VBG pH Sodium Potassium Chloride Carbon Dioxide 3 L* BUN 6 L Creatinine Glucose 346 H POC Glucose 398 H 342 H Hemoglobin A1c Calcium 7.9 L Phosphorus Magnesium Total Protein 06/16/20 06/16/20 06/16/20 01:09 01:09 02:23 WBC RBC Hgb Hct MCV MCH MCHC Lymph % (Auto) Kings % (Auto) Seg Neutrophils % Seg Neutrophils # VBG pH Sodium Potassium Chloride Carbon Dioxide BUN Creatinine Glucose POC Glucose 295 H Hemoglobin A1c 11.6 H Calcium Phosphorus 2.30 L Magnesium Total Protein 06/16/20 06/16/20 06/16/20 03:14 05:25 05:37 WBC RBC Hgb Hct MCV MCH MCHC Lymph % (Auto) Kings % (Auto) Seg Neutrophils % Seg Neutrophils # VBG pH Sodium Potassium 3.2 L Chloride 109.8 H Carbon Dioxide 10 L D BUN 4 L Creatinine Glucose 185 H POC Glucose 218 H 213 H Hemoglobin A1c Calcium 7.7 L Phosphorus Magnesium Total Protein 06/16/20 06/16/20 06/16/20 06:32 08:20 09:44 WBC RBC Hgb Hct MCV MCH MCHC Lymph % (Auto) Kings % (Auto) Seg Neutrophils % Seg Neutrophils # VBG pH Sodium Potassium Chloride Carbon Dioxide BUN Creatinine Glucose POC Glucose 207 H 173 H 169 H Hemoglobin A1c Calcium Phosphorus Magnesium Total Protein 06/16/20 06/16/20 06/16/20 10:28 11:26 14:27 WBC RBC Hgb Hct MCV MCH MCHC Lymph % (Auto) Kings % (Auto) Seg Neutrophils % Seg Neutrophils # VBG pH Sodium Potassium 3.3 L Chloride 108.0 H Carbon Dioxide 14 L BUN 5 L Creatinine Glucose 171 H POC Glucose 157 H 145 H Hemoglobin A1c Calcium 7.7 L Phosphorus Magnesium Total Protein 06/16/20 06/16/20 06/16/20 14:27 14:49 15:46 WBC RBC Hgb Hct MCV MCH 34 H MCHC 35 H Lymph % (Auto) Kings % (Auto) Seg Neutrophils % Seg Neutrophils # VBG pH Sodium Potassium Chloride Carbon Dioxide BUN Creatinine Glucose POC Glucose 152 H 183 H Hemoglobin A1c Calcium Phosphorus Magnesium Total Protein 06/16/20 06/16/20 06/16/20 17:32 21:22 23:42 WBC RBC Hgb Hct MCV MCH MCHC Lymph % (Auto) Kings % (Auto) Seg Neutrophils % Seg Neutrophils # VBG pH Sodium 136 L Potassium 3.1 L Chloride Carbon Dioxide 19 L BUN 6 L Creatinine 0.4 L Glucose 337 H POC Glucose 220 H 293 H Hemoglobin A1c Calcium 7.5 L Phosphorus Magnesium Total Protein 06/17/20 06/17/20 06/17/20 06:40 06:40 07:40 WBC RBC 3.54 L Hgb Hct MCV MCH 34 H MCHC 35 H Lymph % (Auto) 41.7 H Kings % (Auto) 8.1 H Seg Neutrophils % Seg Neutrophils # VBG pH Sodium Potassium 2.7 L* Chloride 108.2 H Carbon Dioxide BUN 6 L Creatinine 0.3 L Glucose 194 H POC Glucose 198 H Hemoglobin A1c Calcium 7.7 L Phosphorus Magnesium Total Protein 06/17/20 06/17/20 11:14 14:12 WBC RBC Hgb Hct MCV MCH MCHC Lymph % (Auto) Kings % (Auto) Seg Neutrophils % Seg Neutrophils # VBG pH Sodium Potassium 3.3 L D Chloride Carbon Dioxide BUN Creatinine Glucose POC Glucose 261 H Hemoglobin A1c Calcium Phosphorus 0.80 L* D Magnesium Total Protein Allied health notes reviewed: nursing
[2020-06-17] MEDS ORDERED: PANTOPRAZOLE 40 MG INJ IV SCH (16:00)
[2020-06-17] MEDS: SUCRALFATE 1 GM/10 ML ORAL LIQD PO SCH ×2 (16:31→21:44)
[2020-06-17] MEDS: PANTOPRAZOLE 40 MG INJ IV SCH (16:32)
[2020-06-17] MEDS ORDERED: POTASSIUM PHOSPHATE 45 MMOL in SODIUM CHLORIDE 0.9% 500 ML 500 ML IV ONE (16:46)
--- NOTE | 2020-06-17 16:46 | Progress Note ---
Assessment and Plan This is a 34-year-old -[place] female with known history of type 1 diabetes mellitus presenting in the emergency room complaining of generalized weakness difficulty breathing which has been ongoing for the past 2 to 3 days. Upon arrival in the emergency room patient was tachycardic and tachypneic. Work-up reveals elevated blood glucose of 414, anion gap of 34 . Patient was commenced on IV fluid and insulin drip according to DKA protocol. Diabetic ketoacidosis -Status post insulin drip, transfer out from the ICU -Currently on long-acting insulin and SSI continue to adjust insulin dose for better adjustment of blood glucose - Intractable nausea vomiting -We will place on Reglan and Protonix -CT abdomen pelvis without any acute event - likely due to underlying gastroparesis Severe hypokalemia and hypophosphatemia -Continue to replete and monitor electrolytes Leukocytosis, likely reactive due to acute DKA DVT prophylaxis, Lovenox Daily clinical course: 06/17: Patient complains of nausea vomiting. CT abdomen pelvis obtained today and shows no abdominal process.. Placed on Reglan and Protonix for possible gastroparesis. Continue to replete potassium and phosphate. Repeat chemistry tomorrow morning. Subjective Date of service: 06/17/20 Interval history: Patient seen and examined. Medical records and medication list reviewed. No acute event overnight noted by the RN. Patient denies any chest pain or difficulty breathing. Patient complaining of nausea vomiting Discussed plan of care at bedside with patient. Objective - Exam Narrative Exam: GENERAL: well-developed and well-nourished -[place] female lying on bed appeared to be in no discomfort. HEENT: Normocephalic. Atraumatic. No conjunctival congestion or icterus. Pa tient has moist mucous membranes. NECK: Supple. Trachea midline. CHEST/LUNGS: Clear to auscultated bilaterally, breathing nonlabored. No wheezes crackles or rhonchi. HEART/CARDIOVASCULAR: Regular in rate and rhythm. S1 and S2 positive. ABDOMEN: Abdomen is soft, nontender. Patient has normal bowel sounds. SKIN: There is no rash. Warm and dry. NEURO: No focal motor deficit. Follows command. MUSCULOSKELETAL: No joint effusion or tenderness. EXTRIMITY: No edema, no cyanosis or clubbing. PSYCH: Cooperative. - Constitutional Vitals: Vital Signs - 12hr 06/17/20 06/17/20 06/17/20 05:33 07:42 10:00 Temperature 97.4 F L 98.3 F Pulse Rate 76 80 74 Respiratory 20 18 Rate Blood Pressure 96/66 87/56 O2 Sat by Pulse 100 98 Oximetry - Labs CBC & Chem 7: 06/17/20 06:40 06/17/20 14:12 Labs: Abnormal lab results 06/16/20 06/16/20 06/16/20 Range/Units 15:46 17:32 21:22 RBC (3.65-5.03) M/mm3 MCH (28-32) pg MCHC (30-34) % Lymph % (Auto) (13.4-35.0) % Twiggs % (Auto) (0.0-7.3) % Sodium (137-145) mmol/L Potassium (3.6-5.0) mmol/L Chloride (98-107) mmol/L Carbon Dioxide (22-30) mmol/L BUN (7-17) mg/dL Creatinine (0.6-1.2) mg/dL Glucose (65-100) mg/dL POC Glucose 183 H 220 H 293 H (70-105) mg/dL Calcium (8.4-10.2) mg/dL Phosphorus (2.5-4.5) mg/dL 06/16/20 06/17/20 06/17/20 Range/Units 23:42 06:40 06:40 RBC 3.54 L (3.65-5.03) M/mm3 MCH 34 H (28-32) pg MCHC 35 H (30-34) % Lymph % (Auto) 41.7 H (13.4-35.0) % Twiggs % (Auto) 8.1 H (0.0-7.3) % Sodium 136 L (137-145) mmol/L Potassium 3.1 L 2.7 L* (3.6-5.0) mmol/L Chloride 108.2 H (98-107) mmol/L Carbon Dioxide 19 L (22-30) mmol/L BUN 6 L 6 L (7-17) mg/dL Creatinine 0.4 L 0.3 L (0.6-1.2) mg/dL Glucose 337 H 194 H (65-100) mg/dL POC Glucose (70-105) mg/dL Calcium 7.5 L 7.7 L (8.4-10.2) mg/dL Phosphorus (2.5-4.5) mg/dL 06/17/20 06/17/20 06/17/20 Range/Units 07:40 11:14 14:12 RBC (3.65-5.03) M/mm3 MCH (28-32) pg MCHC (30-34) % Lymph % (Auto) (13.4-35.0) % Twiggs % (Auto) (0.0-7.3) % Sodium (137-145) mmol/L Potassium 3.3 L D (3.6-5.0) mmol/L Chloride (98-107) mmol/L Carbon Dioxide (22-30) mmol/L BUN (7-17) mg/dL Creatinine (0.6-1.2) mg/dL Glucose (65-100) mg/dL POC Glucose 198 H 261 H (70-105) mg/dL Calcium (8.4-10.2) mg/dL Phosphorus 0.80 L* D (2.5-4.5) mg/dL
[2020-06-17] MEDS: METOCLOPRAMIDE 10 MG/2 ML INJ IV SCH (21:44)
[2020-06-17] MEDS: ENOXAPARIN 40 MG/0.4 ML INJ SUB-Q SCH (21:45)
[2020-06-18] MEDS: HYDROcodone/ACETAMINOPHEN 5-325 MG TAB PO PRN (01:23)
[2020-06-18 06:54] LABS: Blood Urea Nitrogen 4 mg/dL (7-17); Calcium 7.6 mg/dL (8.4-10.2); Hemolysis Index 5
[2020-06-18 07:02] LABS: BUN/Creatinine Ratio 20
[2020-06-18] MEDS: INSULIN REGULAR, HUMAN 100 UNITS/1 ML SUB-Q SCH ×3 (08:53→17:19)
[2020-06-18] MEDS: INSULIN NPH, HUMAN 100 UNIT/1 ML SUB-Q SCH (08:53)
[2020-06-18] MEDS: METOCLOPRAMIDE 10 MG/2 ML INJ IV SCH ×3 (08:53→17:19)
[2020-06-18] MEDS: SODIUM CHLORIDE 0.9% 1000 ML 1,000 ML IV SCH (08:54)
[2020-06-18] MEDS: SUCRALFATE 1 GM/10 ML ORAL LIQD PO SCH ×5 (08:54→17:20)
[2020-06-18] MEDS: PANTOPRAZOLE 40 MG INJ IV SCH (10:40)
[2020-06-18] MEDS ORDERED: POTASSIUM PHOSPHATE 45 MMOL in SODIUM CHLORIDE 0.9% 500 ML 500 ML IV ONE (10:41)
[2020-06-18] MEDS: ACETAMINOPHEN 325 MG TAB PO PRN (10:41)
[2020-06-18] MEDS: POTASSIUM CHLORIDE ER 10 MEQ TAB PO SCH (10:41)
[2020-06-18] MEDS ORDERED: INSULIN NPH, HUMAN 100 UNIT/1 ML SUB-Q SCH ×2 (10:42→17:00)
[2020-06-18 12:03] VITALS: BP 102/68
--- NOTE | 2020-06-18 13:59 | Discharge Summary ---
Providers - Providers Date of Admission: 06/16/20 00:10 Date of discharge: 06/18/20 Attending physician: SANDRA LAKE 06/16/20 00:34 Consult to Dietitian/Nutrition [CONS] Routine Physician Instructions: Reason For Exam: Reason for Consult: Diet education 06/16/20 08:23 Consult to Physician [CONS] Routine Comment: Consulting Provider: PINO CHANEL Physician Instructions: Reason For Exam: DKA Primary care physician: BUILDING EQUIPMENT OPERATOR Hospitalization Condition: Stable Pertinent studies: Chest x-ray, CT abdomen pelvis Hospital course: This is a 34-year-old -[place] female with known history of type 1 diabetes mellitus presenting in the emergency room complaining of generalized weakness difficulty breathing which has been ongoing for the past 2 to 3 days. Upon arrival in the emergency room patient was tachycardic and tachypneic. Work-up reveals elevated blood glucose of 414, anion gap of 34, urine ketone was 80. Patient was commenced on IV fluid and insulin drip according to DKA protocol. Patient was weaned off from insulin drip as BG improved and anion gap closed. Patient was continued on iv fluid, consistent carb diet, Placed on Long-acting insulin and SSI. Adjusted long acting insulin dose to better improve BG level, counselled for dietary and insulin regimen compliance. Patient also complains of intractable nausea vomiting vomiting and abdominal pain. CT abdomen pelvis obtained which showed no acute process. Patient was placed on Protonix, Carafate and Reglan. Her symptoms improved, nausea vomiting resolved and she was tolerating diet. Patient was then discharged home in stable condition with outpt f/u. Disposition: TO HOME OR SELFCARE Final Discharge Diagnosis (Prints w/discharge instructions): Diabetic ketoacidosis, diabetes mellitus type 1, intractable nausea and vomiting likely f rom underlying gastroparesis, severe hypokalemia and hypophosphatemia, leukocytosis reactive due to acute DKA. Time spent for discharge: 34 minutes Core Measure Documentation - Palliative Care Palliative Care/ Comfort Measures: Not Applicable - Core Measures Any of the following diagnoses?: none Exam - Physical Exam Narrative exam: GENERAL: well-developed and well-nourished -[place] female lying on bed appeared to be in no discomfort. HEENT: Normocephalic. Atraumatic. No conjunctival congestion or icterus. Patient has moist mucous membranes. NECK: Supple. Trachea midline. CHEST/LUNGS: Clear to auscultated bilaterally, breathing nonlabored. No wheezes crackles or rhonchi. HEART/CARDIOVASCULAR: Regular in rate and rhythm. S1 and S2 positive. ABDOMEN: Abdomen is soft, nontender. Patient has normal bowel sounds. SKIN: There is no rash. Warm and dry. NEURO: No focal motor deficit. Follows command. MUSCULOSKELETAL: No joint effusion or tenderness. EXTRIMITY: No edema, no cyanosis or clubbing. PSYCH: Cooperative. - Constitutional Vitals: Temp Pulse Resp BP Pulse Ox 97.4 F L 88 18 102/68 99 06/18/20 12:02 06/18/20 12:02 06/18/20 12:02 06/18/20 12:02 06/18/20 12:02 Plan Activity: advance as tolerated Weight Bearing Status: Weight Bear as Tolerated Diet: diabetic Special Instructions: record blood sugar diary Follow up with: PRIMARY CAREMD [Primary Care Provider] - 3-5 Days TY INTERIANO MD [Staff Physician] - 7 Days Prescriptions: Sucralfate [Carafate] 1 gm PO ACHS 14 Days Insulin Regular, Human [HumuLIN R] 0 units SUB-Q ACHS 30 Days Insulin NPH, Human [NovoLIN N] 20 unit SUB-Q BIDDIAB 30 Days Pantoprazole [Protonix] 40 mg PO QDAY #30 tablet Metoclopramide HCl [Reglan TAB] 5 mg PO TIDAC #30 tablet
== END 2020-06-18 17:45 | disposition home or self-care (01) | DRG 639 ==
LOC: ED 21:01 → CC1 06-16 00:10 → 4A 06-16 16:36
PROVIDERS: ADMIT Internal Medicine Geriatric Medicine; ATTEND Internal Medicine
DX: E10.11 Type 1 diabetes mellitus with ketoacidosis with coma (principal); E87.6 Hypokalemia; E83.39 Other disorders of phosphorus metabolism; E10.43 Type 1 diabetes mellitus with diabetic autonomic (poly)neuropathy; K31.84 Gastroparesis; D72.829 Elevated white blood cell count, unspecified; F17.200 Nicotine dependence, unspecified, uncomplicated; Z20.822 Contact with and (suspected) exposure to COVID-19; Z90.49 Acquired absence of other specified parts of digestive tract
CPT/HCPCS: 36415; 71045; 74176; 80048; 80053; 81001; 82805; 82962; 83036; 83735; 84100; 84132; 84702; 85025; 85027; 96365; 96366; 96367; 96375; 96376; G0378; C9113; J1650; J1815; J2270; J2405; J2765; J3480; J7030; J7040; J7120; U0003

== ENCOUNTER 2020-07-24 18:07 | Emergency (ER) | payer OTHER ==
[2020-07-24 19:47] VITALS: BP 130/83
[2020-07-24] MEDS ORDERED: SODIUM CHLORIDE 0.9% 1000 ML 1,000 ML IV ONE ×2 (20:45)
--- NOTE | 2020-07-24 20:49 | Event Note ---
ED Screening Note Date of service: 07/24/20 Time: 20:46 ED Screening Note: Patient is a 34 yo AA female with a h/o IDDM who presents to the ED with c/o acute onset persistent nausea, vomiting, diffuse abdominal pain, lightheadedness, dizziness, generalized weakness and lack of appetite for the last 1 week, worse in the last 2 days. Patient states that she suspects that she may be developing DKA as her blood sugar has also been high at home. Patient denies fever, chills, chest pain, dyspnea, cough, dysuria, urinary urgency and frequency. This initial assessment/diagnostic orders/clinical plan/treatment(s) is/are subject to change based on patients health status, clinical progression and re- assessment by fellow clinical providers in the ED. Further treatment and workup at subsequent clinical providers discretion. Patient/guardian urged not to elope from the ED as their condition may be serious if not clinically assessed and managed. Initial orders include: CBC, CMP, Acetone, UA, hcg serum, Lipase, NS 1% 2 liters x 1
[2020-07-24 21:14] LABS: Basophils # (Auto) 0.1 K/mm3 (0.0-0.1); Basophils % (Auto) 0.7 % (0.0-1.8); Eosinophils % (Auto) 0.1 % (0.0-4.3); Hematocrit 49.5 % (30.3-42.9); Hemoglobin 16.4 gm/dl (10.1-14.3); Lymphocytes # (Auto) 1.7 K/mm3 (1.2-5.4); Lymphocytes % (Auto) 21.1 % (13.4-35.0); Mean Corpuscular HGB Conc 33 % (30-34); Mean Corpuscular Volume 103 fl (79-97); Monocytes # (Auto) 0.5 K/mm3 (0.0-0.8); Monocytes % (Auto) 6.5 % (0.0-7.3); Platelet Count 311 K/mm3 (140-440); Red Blood Count 4.82 M/mm3 (3.65-5.03); Red Cell Distribution Width 13.5 % (13.2-15.2)
[2020-07-24 21:29] LABS: Alanine Aminotransferase 7 units/L (7-56); Albumin 4.7 g/dL (3.9-5); Blood Urea Nitrogen 7 mg/dL (7-17); Calcium 8.1 mg/dL (8.4-10.2); Hemolysis Index 32
[2020-07-24 21:41] LABS: BUN/Creatinine Ratio 14
== END 2020-07-24 21:00 | disposition left against medical advice (07) ==
LOC: ED 18:07
DX: Z00.8 Encounter for other general examination (principal); Z53.21 Procedure and treatment not carried out due to patient leaving prior to being seen by health care provider
CPT/HCPCS: 36415; 80053; 82962; 83690; 84703; 85025